=== PATIENT | male | born 1950 | race Caucasian/White ===

== ENCOUNTER 2016-11-29 16:18 | Emergency (ER) | payer OTHER ==
[~2016-11-29] VITALS: Ht 175.3 cm; Wt 90.0 kg
[~2016-11-29 16:18] MED LIST: ALPR1TAB3 PO; BUPR150T PO; HYDR-3533 PO; LOSA25TA31 PO; RANI150T PO; SERT-129 PO; SIMV10TA PO; TRAZ100 PO
[2016-11-29] MEDS ORDERED: HYDROmorphone HCL PF 1 MG/ML VIAL IVS ONE (16:45)
[2016-11-29] MEDS ORDERED: ceFAZolin 2 GM PREMIX 50 ML IV ONE (16:45)
[2016-11-29] MEDS ORDERED: LIDOCAINE HCL 1% 50 ML VIAL INFIL ONE (16:45)
[2016-11-29] MEDS ORDERED: SODIUM CHLOR 0.9% 1000 ML INJ 1,000 ML IV ONE (16:45)
[2016-11-29] MEDS ORDERED: ONDANSETRON HCL 4 MG/2 ML VIAL IV ONE (16:45)
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
[2016-11-29 17:03] VITALS: BP 126/84; PULSE 74; RESP 16; TEMP 98; O2SAT 98
[2016-11-29] MEDS ORDERED: SIMV10TA PO (17:09)
[2016-11-29] MEDS ORDERED: LOSA25TA PO (17:09)
[2016-11-29] MEDS ORDERED: ALPR0.25 PO (17:09)
[2016-11-29] MEDS ORDERED: SERT-129 PO (17:09)
[2016-11-29] MEDS ORDERED: TRAZ100T4 PO (17:09)
[2016-11-29] MEDS ORDERED: BUPR1TAB29 PO (17:09)
[2016-11-29] MEDS ORDERED: GABA100C4 PO (17:09)
[2016-11-29 17:11] LABS: BASOPHIL # 0.1 TH/MM3 (0-0.2); BASOPHIL % 0.8 % (0.0-2.0); EOSINOPHIL # 0.1 TH/MM3 (0-0.4); EOSINOPHIL % 1.2 % (0.0-4.0); HEMATOCRIT 46.2 % (39.0-51.0); HEMO FLAGS DIFF FINAL; LYMPH % 23.6 % (9.0-44.0); LYMPHOCYTE # 2.7 TH/MM3 (1.0-4.8); MEAN CELL VOLUME 86.1 FL (80.0-100.0); MEAN CORPUSCULAR HGB CONC 33.7 % (32.0-36.0); MONO % 5.1 % (0.0-8.0); NEUT % 69.3 % (16.0-70.0); PLATELET COUNT 244 TH/MM3 (150-450); RED BLOOD COUNT 5.37 MIL/MM3 (4.50-5.90); RED CELL DISTRIBUTION WIDTH 13.8 % (11.6-17.2); WHITE BLOOD COUNT 11.5 TH/MM3 (4.0-11.0)
[2016-11-29] MEDS ORDERED: LIDOCAINE 1%/EPINEPHrine 1:100,000 SOLN 20 ML VIAL INFIL ONE (17:30)
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
[2016-11-29 18:02] VITALS: RESP 18
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
[2016-11-29] MEDS ORDERED: HYDR-3533 PO (18:58)
[2016-11-29] MEDS ORDERED: CEPH-460 PO (18:58)
[2016-11-29 19:06] VITALS: BP 121/70
== END 2016-11-29 19:06 | disposition home or self-care (01) ==
LOC: NEPC 16:18
DX: S61.432A Puncture wound without foreign body of left hand, initial encounter (principal); R73.03 Prediabetes; W32.0XXA Accidental handgun discharge, initial encounter; Y92.009 Unspecified place in unspecified non-institutional (private) residence as the place of occurrence of the external cause
CPT/HCPCS: 12004; 73120; 85025; 96361; 96374; 96375; 99283; J0690; J1170; J2405; J7030